=== PATIENT | male | born 1990 | race Caucasian/White ===

== ENCOUNTER 2024-06-02 12:39 | Emergency (ER) | payer OTHER ==
[~2024-06-02] VITALS: Ht 177.8 cm; Wt 84.4 kg
[2024-06-02 13:03] VITALS: BP 117/74; PULSE 69; RESP 20; TEMP 98.2; O2SAT 99
[2024-06-02] MEDS ORDERED: LIDO15SO10 PO (14:36)
== END 2024-06-02 14:40 | disposition home or self-care (01) ==
LOC: MED 12:39
DX: R59.0 Localized enlarged lymph nodes (principal); J02.9 Acute pharyngitis, unspecified; R68.84 Jaw pain; M54.2 Cervicalgia; Z79.899 Other long term (current) drug therapy
CPT/HCPCS: 70490; 99284